=== PATIENT | male | born 1995 | race Caucasian/White ===

== ENCOUNTER 2023-05-11 18:49 | Emergency (ER) | payer SELFPAY ==
[2023-05-11 19:07] VITALS: BP 132/90; PULSE 66; RESP 16; TEMP 36.7; O2SAT 99; BMI 22.4
--- NOTE | 2023-05-11 19:33 | ED_ITS ---
HPI - Abdominal Pain General Chief Complaint: Abdominal Pain Stated Complaint: LOWER ABDOMINAL PAIN Time Seen by Provider: 05/11/23 19:12 Source: patient and family Mode of arrival: walk-in Limitations: no limitations History of Present Illness HPI narrative: patient is a 28-year-old male presents the emergency department for the evaluation of low abdominal pain. Patient states for the last several days he has had pain in the suprapubic abdomen, slightly worse on the left side. He has had no fevers, chills. He reports nausea but no vomiting. He states initially he had diarrhea but has not had a bowel movement for several days, he took MiraLAX prior to arrival and at time of arrival to the Emergency Room was able to have a small, hard bowel movement. He states he has to strain to have the bowel movements. He has also noticed burning with urination the last two days with pain radiation to the testicles. He has not had any swelling, redness or drainage of the testicles. No medications taken prior to arrival. He denies any sick contacts at home. No previous abdominal surgeries. He has no concern for STD exposure. Related Data Previous Rx's Medication Instructions Recorded hydrocodone 5 mg-acetaminophen 325 1 tab PO Q6H PRN pain #12 tabs 05/11/23 mg tablet ketorolac 10 mg tablet 10 mg PO TID PRN pain #10 tabs 05/11/23 ondansetron 4 mg disintegrating 4 mg PO Q6H PRN nausea and 05/11/23 tablet vomiting #12 tabs Allergies Allergy/AdvReac Type Severity Reaction Status Date / Time No Known Drug Allergies Allergy Verified 05/11/23 19:07 Review of Systems ROS Constitutional Denies: fever or chills Ears, nose, mouth, and throat Denies: throat pain Cardiovascular Denies: chest pain Respiratory Denies: shortness of breath or cough Gastrointestinal Reports: abdominal pain, nausea, diarrhea and constipation; Denies: vomiting Musculoskeletal Denies: back pain Integumentary/Breast Denies: rash Neurological Denies: headache Hematologic/Lymphatic Denies: easy bruising PFSH PFSH Social History Smoking status: Current every day smoker Exam Narrative Exam Narrative: Gen.: Awake, alert, in no distress Head: Normocephalic, atraumatic ENT: Moist mucous membranes Respiratory: No respiratory distress Gastrointestinal: Abdomen is soft, nondistended and nontender to palpation : patient examined with Ira Chapman RN at bedside throughout the duration of the exam. Patient is circumcised, no significant testicular tenderness, no swelling or redness of the scrotum. No pain out of proportion on exam Extremities: Moves extremities equally Psych: Normal mood and affect Neuro: No focal neuro deficit Skin: Warm, dry, intact Constitutional Vital Signs, click to edit/add: Last Vital Signs Temp 98.1 F 05/11/23 19:07 Pulse 66 05/11/23 19:07 Resp 16 05/11/23 19:07 BP 132/90 05/11/23 19:07 Pulse Ox 99 05/11/23 19:07 O2 Del Method Room Air 05/11/23 19:07 Course Vital Signs Vital signs: Vital Signs Temperature 98.1 F 05/11/23 19:07 Pulse Rate 66 05/11/23 19:07 Respiratory Rate 16 05/11/23 19:07 Blood Pressure 132/90 05/11/23 19:07 Pulse Oximetry 99 05/11/23 19:07 Oxygen Delivery Method Room Air 05/11/23 19:07 Temperature 98.1 F 05/11/23 19:07 Pulse Rate 66 05/11/23 19:07 Respiratory Rate 16 05/11/23 19:07 Blood Pressure 132/90 05/11/23 19:07 Pulse Oximetry 99 05/11/23 19:07 Oxygen Delivery Method Room Air 05/11/23 19:07 MDM - Abdominal Pain MDM Narrative Medical decision making narrative: patient medicated with IV fluids, Toradol, Zofran, Levsin. He was remedicated with morphine as he had an increase in pain after his bowel movement. Lab studies are unremarkable, CT of the abdomen and pelvis without contrast shows that the patient has a right renal stone with no hydronephrosis. He is found on CT to have a small amount of pericholecystic fluid although he has no right upper quadrant abdominal pain and normal bilirubin/LFTs. He is reexamined by attending physician prior to discharge, abdomen is soft and benign. Patient will be discharged home with a short course of analgesics, NSAIDs, Zofran. He is strongly encouraged to continue MiraLAX as his CT does show evidence of stool in the right colon. Follow-up with PCP and return to the Emergency Room if symptoms change or worsen Medical Records Attestation: I reviewed the patient's medical records. Lab Data Attestation: I reviewed the patient's lab results. Labs: Lab Results 05/11/23 Range/Units 19:32 WBC 9.5 (4.0-11.0) 10^3/uL RBC 4.45 L (4.70-6.10) 10^6/uL Hgb 13.8 L (14.0-18.0) g/dL Hct 41.0 L (42.0-54.0) % MCV 92.1 (80.0-94.0) fL MCH 31.0 (25.9-34.0) pg MCHC 33.7 (29.9-35.2) g/dL RDW 13.3 (11.0-15.0) % Plt Count 240 (150-450) 10^3/uL MPV 9.8 (9.5-13.5) fL Neut % (Auto) 61.1 (43.0-75.0) % Lymph % (Auto) 25.7 (20.5-60.0) % Dickson % (Auto) 9.3 (1.7-12.0) % Eos % (Auto) 3.1 (0.9-7.0) % Baso % (Auto) 0.6 (0.2-2.0) % Neut # (Auto) 5.8 (1.4-6.5) 10^3/uL Lymph # (Auto) 2.5 (1.2-3.8) 10^3/uL Dickson # (Auto) 0.9 H (0.3-0.8) 10^3/uL Eos # (Auto) 0.3 (0.0-0.7) 10^3/uL Baso # (Auto) 0.1 (0.0-0.1) 10^3/uL Abs Immat Gran (auto) 0.02 (0.00-0.03) 10^3/uL Imm/Tot Granulo (auto) 0.2 (0.0-0.5) % Sodium 146 H (136-145) mmol/L Potassium 4.0 (3.5-5.1) mmol/L Chloride 109 H (98-107) mmol/L Carbon Dioxide 29.4 (21.0-32.0) mmol/L Anion Gap 11.6 BUN 11.0 (7.0-18.0) mg/dL Creatinine 1.28 (0.70-1.30) mg/dL Est GFR ( Amer) >60 (>=60) Est GFR (Non-Af Amer) >60 (>=60) BUN/Creatinine Ratio 8.6 Glucose 91 (74-106) mg/dL Lactate 1.3 (0.4-2.0) mmol/L Calcium 9.1 (8.5-10.1) mg/dL Total Bilirubin 0.6 (0.2-1.0) mg/dL AST 11 L (15-37) U/L ALT 18 (16-63) U/L Alkaline Phosphatase 63 (46-116) U/L Total Protein 6.7 (6.4-8.2) g/dL Albumin 4.0 (3.4-5.0) g/dL Globulin 2.7 g/dL Albumin/Globulin Ratio 1.5 Urine Color Lt. yellow (YELLOW) Urine Clarity Clear (CLEAR) Urine pH 6.0 (5.0-9.0) Ur Specific [place] 1.020 (1.005-1.025) Urine Protein Negative (NEG/TRACE) mg/dL Urine Glucose (UA) Negative (NEGATIVE) mg/dL Urine Ketones Negative (NEGATIVE) mg/dL Urine Occult Blood Small A (NEGATIVE) Urine Nitrite Negative (NEGATIVE) Urine Bilirubin Negative (NEGATIVE) Urine Urobilinogen 0.2 (0.2-1.0) EU/dL Ur Leukocyte Esterase Negative (NEGATIVE) Urine RBC 20-50 A (0-2) #/HPF Urine WBC 0-2 A (NONE SEEN) #/HPF Ur Squamous Epith Cells Few A (NONE/RARE) #/LPF Urine Crystals None seen (None Seen) #/HPF Urine Bacteria None seen (NONE SEEN) #/HPF Urine Casts None seen (NONE SEEN) #/LPF Urine Mucus None seen (NONE SEEN) Ur Culture Indicated? No Imaging Data CT scan - abdomen: Attestation: I have reviewed the pertinent imaging results. Radiologist's impression: Procedure: CT abdomen pelvis wo con EXAMINATION: CT ABDOMEN AND PELVIS WITHOUT IV CONTRAST CLINICAL HISTORY: Increasing urinary frequency and dysuria TECHNIQUE: Non-IV contrast imaging of the abdomen and pelvis was performed using standard technique, scanning from just above the dome of the diaphragm to the symphysis pubis. Unenhanced imaging is limited for the evaluation of some intra-abdominal and pelvic pathology. All CT scans at this facility use dose modulation, iterative reconstruction, and/or weight based dosing when appropriate to reduce radiation dose to as low as reasonably achievable. Contrast: IV: None COMPARISON: None. RESULT: Abdomen / Pelvis: Liver: Unremarkable. Biliary: Small pericholecystic fluid. No cholelithiasis or ductal dilation. Spleen: No splenomegaly. Pancreas: Unremarkable. Adrenals: Normal. Kidneys: Multiple right renal nonobstructing calculi the largest interpolar region measures 3 mm. No hydronephrosis. GI Tract: No bowel dilation. Normal appendix. Moderate colonic stool. Lymph Nodes: No lymphadenopathy. Mesentery/peritoneum: No ascites. Retroperitoneum: No mass. Vasculature: No abdominal aortic or iliac artery aneurysm. Pelvis: No mass or ascites. Urinary bladder is unremarkable. Bones/Soft Tissues: No acute abnormality. Lower thorax: Unremarkable. IMPRESSION: * Multiple nonobstructing right renal calculi measuring up to 3 mm. No hydronephrosis. * Nonspecific small pericholecystic fluid. Electronically authenticated by: PRISCILLA GREGG Date: 05/11/2023 21:00 Discharge Plan Discharge Chief Complaint: Abdominal Pain Clinical Impression: Renal calculus, Abdominal pain Patient Disposition: Home, Self-Care Time of Disposition Decision: 21:18 Condition: Good Prescriptions / Home Meds: New hydrocodone-acetaminophen 5-325 mg tablet 1 tab PO Q6H PRN (Reason: pain) Qty: 12 0RF Rx Instructions: DX: N20.0 ketorolac 10 mg tablet 10 mg PO TID PRN (Reason: pain) Qty: 10 0RF ondansetron 4 mg tablet,disintegrating 4 mg PO Q6H PRN (Reason: nausea and vomiting) Qty: 12 0RF Instructions: Kidney Stones (ED), Abdominal Pain (ED) Stand Alone Forms: Portal Instructions Referrals: Physician,Non-Staff, MD [Primary Care Provider] - 1 week Discharge Date/Time: 05/11/23 21:34
[2023-05-11 19:43] LABS: Bilirubin Urine NEGATIVE (NEGATIVE); Blood Urine SMALL (NEGATIVE); Clarity Urine CLEAR (CLEAR); Color Urine LT. YELLOW (YELLOW); Glucose Urine UA NEGATIVE (NEGATIVE); Ketones Urine NEGATIVE (NEGATIVE); Leukocyte Esterase Urine NEGATIVE (NEGATIVE); Nitrite Urine NEGATIVE (NEGATIVE); Protein Urine NEGATIVE (NEG/TRACE); Urobilinogen Urine 0.2 EU/dL (0.2-1.0)
[2023-05-11] MEDS: HYOSCYAMINE SULFATE 0.125 MG TAB.SUBL SL (19:43)
[2023-05-11] MEDS: KETOROLAC TROMETHAMINE 30 MG/ML VIAL IVP (19:43)
[2023-05-11] MEDS: 0.9 % SODIUM CHLORIDE 1,000 ML 999 ML IV (19:43)
[2023-05-11] MEDS: ONDANSETRON PF 4 MG/2 ML VIAL IV (19:43)
[2023-05-11 19:45] LABS: Basophils Absolute Auto 0.1 10^3/uL (0.0-0.1); Basophils Percent Auto 0.6 % (0.2-2.0); Eosinophils Absolute Auto 0.3 10^3/uL (0.0-0.7); Eosinophils Percent Auto 3.1 % (0.9-7.0); Hemoglobin 13.8 g/dL (14.0-18.0); Immature Granulocytes Abs Auto 0.02 10^3/uL (0.00-0.03); Immature Granulocytes Pct Auto 0.2 % (0.0-0.5); Lymphocytes Absolute Auto 2.5 10^3/uL (1.2-3.8); Lymphocytes Percent Auto 25.7 % (20.5-60.0); Mean Corpuscular HGB Conc 33.7 g/dL (29.9-35.2); Mean Corpuscular Volume 92.1 fL (80.0-94.0); Mean Platelet Volume 9.8 fL (9.5-13.5); Monocytes Absolute Auto 0.9 10^3/uL (0.3-0.8); Monocytes Percent Auto 9.3 % (1.7-12.0); Neutrophils Absolute Auto 5.8 10^3/uL (1.4-6.5); Neutrophils Percent Auto 61.1 % (43.0-75.0); Platelet Count 240 10^3/uL (150-450); Red Blood Count 4.45 10^6/uL (4.70-6.10); Red Cell Distribution Width 13.3 % (11.0-15.0); White Blood Count 9.5 10^3/uL (4.0-11.0)
[2023-05-11 19:48] LABS: Urine Microscopic Indicated YES
[2023-05-11 19:51] LABS: Bacteria Urine NONE SEEN #/HPF (NONE SEEN); Cast Seen? NONE SEEN #/LPF (NONE SEEN); Crystals Seen? None Seen #/HPF (None Seen); Mucus Urine NONE SEEN (NONE SEEN); RBC Urine 20-50 #/HPF (0-2); Squamous Epithelial Cell Urine FEW #/LPF (NONE/RARE); Urine Culture Indicated NO; WBC Urine 0-2 #/HPF (NONE SEEN)
--- NOTE | 2023-05-11 19:52 | CT_ITS ---
[address] [address] Patient Name: ERIC ALEJANDRO MRN: [id number] date: 1995 Sex: M Assigned Patient Location: ER Current Patient Location: ER Accession/Order Number: [id number] Exam Date: 05/11/2023 20:34 Report Date: 05/11/2023 21:00 At the request of: PRATIBHA SMITH Procedure: CT abdomen pelvis wo con EXAMINATION: CT ABDOMEN AND PELVIS WITHOUT IV CONTRAST CLINICAL HISTORY: Increasing urinary frequency and dysuria TECHNIQUE: Non-IV contrast imaging of the abdomen and pelvis was performed using standard technique, scanning from just above the dome of the diaphragm to the symphysis pubis. Unenhanced imaging is limited for the evaluation of some intra-abdominal and pelvic pathology. All CT scans at this facility use dose modulation, iterative reconstruction, and/or weight based dosing when appropriate to reduce radiation dose to as low as reasonably achievable. Contrast: IV: None COMPARISON: None. RESULT: Abdomen / Pelvis: Liver: Unremarkable. Biliary: Small pericholecystic fluid. No cholelithiasis or ductal dilation. Spleen: No splenomegaly. Pancreas: Unremarkable. Adrenals: Normal. Kidneys: Multiple right renal nonobstructing calculi the largest interpolar region measures 3 mm. No hydronephrosis. GI Tract: No bowel dilation. Normal appendix. Moderate colonic stool. Lymph Nodes: No lymphadenopathy. Mesentery/peritoneum: No ascites. Retroperitoneum: No mass. Vasculature: No abdominal aortic or iliac artery aneurysm. Pelvis: No mass or ascites. Urinary bladder is unremarkable. Bones/Soft Tissues: No acute abnormality. Lower thorax: Unremarkable. CT/CT abdomen pelvis wo con IMPRESSION: * Multiple nonobstructing right renal calculi measuring up to 3 mm. No hydronephrosis. * Nonspecific small pericholecystic fluid. Electronically authenticated by: PRISCILLA GREGG Date: 05/11/2023 21:00
[2023-05-11 20:00] LABS: Lactate/Lactic Acid 1.3 mmol/L (0.4-2.0)
[2023-05-11 20:06] LABS: Alanine Aminotransferase 18 U/L (16-63); Albumin Globulin Ratio 1.5; Alkaline Phosphatase 63 U/L (46-116); Anion Gap 11.6; Aspartate Amino Transferase 11 U/L (15-37); BUN Creatinine Ratio 8.6; Bilirubin Total 0.6 mg/dL (0.2-1.0); Calcium 9.1 mg/dL (8.5-10.1); Carbon Dioxide 29.4 mmol/L (21.0-32.0); Chloride 109 mmol/L (98-107); Estimated GFR (African America >60 (>=60); Estimated GFR (Non-African Ame >60 (>=60); Globulin 2.7 g/dL; Glucose 91 mg/dL (74-106); Sodium 146 mmol/L (136-145); Total Protein 6.7 g/dL (6.4-8.2)
[2023-05-11] MEDS: MORPHINE SULFATE 4 MG/ML VIAL IV (20:26)
== END 2023-05-11 21:34 | disposition home or self-care (01) ==
PROVIDERS: Physician Assistant; Emergency Provider Emergency Medicine
DX: N20.0 Calculus of kidney (principal); R10.9 Unspecified abdominal pain; F17.210 Nicotine dependence, cigarettes, uncomplicated
CPT/HCPCS: 36415; 74176; 80053; 81001; 83605; 85025; 96374; 96375; 99285